=== PATIENT | female | born 1970 | race Caucasian/White ===

== ENCOUNTER 2018-02-03 12:49 | Emergency (ER) | payer OTHER ==
[2018-02-03] MEDS: KETOROLAC 30 MG INJ IM (15:06)
[2018-02-03] MEDS: METHOCARBAMOL 750 MG TAB PO (15:19)
[2018-02-03] MEDS: DEXAMETHASONE 10 MG/ML 1 ML INJ IM (15:20)
== END 2018-02-03 17:10 | disposition home or self-care (01) ==
LOC: FTE 12:49
DX: M54.41 Lumbago with sciatica, right side (principal)
CPT/HCPCS: 72100; 81025; 96372; 99284-25